=== PATIENT | female | born 1995 | race Asian ===

== ENCOUNTER 2021-02-17 23:11 | Observation (INO) | payer OTHER ==
[2021-02-17] MEDS ORDERED: ELECTROLYTE-148 SOLN 500 ML IV SCH (23:30)
[2021-02-18] MEDS ORDERED: PROMETHAZINE HCL 25 MG/1 ML VIAL IVPB ONE (00:27)
[2021-02-18] MEDS ORDERED: BUTORPHANOL TARTRATE 2 MG/ML VIAL IVPB ONE (00:27)
[2021-02-18] MEDS ORDERED: ELECTROLYTE-148 SOLN 500 ML IV SCH (00:30)
[2021-02-18] MEDS ORDERED: BUTORPHANOL TARTRATE 2 MG/ML VIAL ONE (01:43)
[2021-02-18] MEDS ORDERED: PROMETHAZINE HCL 25 MG/1 ML VIAL ONE (01:43)
[2021-02-18 02:11] LABS: BASO % 0.1 % (0-2.0); EOS % 1.1 % (0-4.5); HEMATOCRIT 35.3 % (32.4-45.2); HEMOGLOBIN 11.8 GM/dL (10.7-15.3); INR 0.98 (0.83-1.09); LYMPH % 23.9 % (8-40); MCH 32.2 pg (25.7-33.7); MCHC 33.4 g/dl (32.0-36.0); MEAN CELL VOLUME 96.4 fl (80-96); MEAN PLT VOLUME 8.2 fl (7.5-11.1); MONO % 8.6 % (3.8-10.2); NEUT % 66.3 % (42.8-82.8); PLATELET COUNT 215 K/MM3 (134-434); PROTHROMBIN TIME (PATIENT) 12.1 SEC (9.7-13.0); RBC 3.66 M/mm3 (3.60-5.2); RDW 16.8 % (11.6-15.6); WHITE BLOOD COUNT 5.4 K/mm3 (4.0-10.0)
[2021-02-18 02:15] LABS: ACTIVATED PTT 27.4 SECONDS (25.2-36.5)
[2021-02-18 02:16] LABS: CHLORIDE 109 mmol/L (98-107); SODIUM 140 mmol/L (136-145)
[2021-02-18 02:17] LABS: EPI CELLS >36 /uL (0-25.1); HYALINE CASTS 7 /uL (0-3.1); URINE APPEARANCE CLOUDY; URINE BACTERIA >9,000 /uL (0-1359); URINE BILIRUBIN NEGATIVE (NEGATIVE); URINE COLOR YELLOW; URINE GLUCOSE (UA) NEGATIVE (NEGATIVE); URINE KETONE NEGATIVE (NEGATIVE); URINE LEUK ESTERASE 3+ (NEGATIVE); URINE NITRITE POSITIVE (NEGATIVE); URINE PROTEIN NEGATIVE (NEGATIVE); URINE RBC 8 /uL (0-23.9); URINE UROBILINOGEN 0.2 mg/dL (0.2-1.0); URINE WBC 82 /uL (0-25.8)
[2021-02-18 02:18] LABS: ANION GAP 9 MMOL/L (8-16); BLOOD UREA NITROGEN 6.8 mg/dL (7-18); CALCIUM 8.6 mg/dL (8.5-10.1); CO2 22 mmol/L (21-32); GLUCOSE,RANDOM 76 mg/dL (74-106)
[2021-02-18 02:22] LABS: CREATININE 0.3 mg/dL (0.55-1.3)
[2021-02-18 02:44] VITALS: BMI 28.2
[2021-02-18 08:02] LABS: METHADONE, UR NEGATIVE ng/ml (CUTOFF=300); OPIATES, URI NEGATIVE ng/ml (CUTOFF=300); URINE BENZODIAZEPINES NEGATIVE ng/ml (CUTOFF=200)
[2021-02-18 08:03] LABS: PHENCYCLIDINE,URINE NEGATIVE ng/ml (CUTOFF=25); URINE AMPHETAMINES NEGATIVE ng/ml (CUTOFF=500); URINE BARBITURATES NEGATIVE ng/ml (CUTOFF=200)
[2021-02-18 08:12] LABS: COCAINE, UR NEGATIVE ng/ml (CUTOFF=300)
[2021-02-18 08:38] VITALS: BP 107/53; PULSE 82; TEMP 98.4
== END 2021-02-18 09:10 | disposition home or self-care (01) ==
LOC: JER 23:11 → JLDR 02-18 00:12 → INTOOBSV 02-18 00:12 → JLDR 02-18 08:31
PROVIDERS: ADMIT Obstetrics & Gynecology; ATTEND Obstetrics & Gynecology
PROC: 3E033NZ Introduction of Analgesics, Hypnotics, Sedatives into Peripheral Vein, Percutaneous Approach (ICD-10-PCS; principal; 2021-02-18)
PROC: 3E033GC Introduction of Other Therapeutic Substance into Peripheral Vein, Percutaneous Approach (ICD-10-PCS; 2021-02-18)
DX: O26.893 Other specified pregnancy related conditions, third trimester (principal); Z3A.38 38 weeks gestation of pregnancy; W18.39XA Other fall on same level, initial encounter; Y93.89 Activity, other specified; Y92.89 Other specified places as the place of occurrence of the external cause; O24.313 Unspecified pre-existing diabetes mellitus in pregnancy, third trimester; E11.9 Type 2 diabetes mellitus without complications; Z79.4 Long term (current) use of insulin
CPT/HCPCS: 36415; 80048; 80307; 81003; 82962; 84484; 85025; 85610; 85730; 86780; 86850; 86900; 86901; 93005; 93010; 96365; 96367; 96375; 99285-25; C9803; G0378; U0003; U0005